=== PATIENT | male | born 1975 | race Caucasian/White ===

== ENCOUNTER 2017-05-06 20:19 | Observation (INO) ==
[2017-05-06 21:10] LABS: Bilirubin,Urine Negative (Negative); Blood,Urine Trace (Negative); Clarity,Urine Clear (Clear); Color,Urine Yellow (Yellow); Glucose,Urine (UA) Normal (Normal); Ketones,Urine Negative (Negative); Leukocyte Esterase,Urine Negative (Negative); Nitrite,Urine Negative (Negative); PH,Urine 5.5 pH Units (5.0-8.0); Protein,Urine >=300 mg/dL (Neg-Trace); Specific Gravity,Urine 1.019 (1.010-1.025); Urobilinogen,Urine Normal (Normal)
[2017-05-06 21:12] LABS: Bacteria,Urine None Seen per hpf (None-Few); Hyaline Casts,Urine Few per lpf (None-Few); RBC,Urine 0-3 per hpf (0-3); Squamous Epithelial Cell,Urine Many per lpf (None-Few)
[2017-05-06 21:19] LABS: Basophils # 0.1 K/mcL (0.0-0.2); Basophils % 1.7 %; Eosinophils % 0.4 %; Hematocrit 47.1 % (37.5-50.1); Hemoglobin 16.3 g/dL (12.9-16.9); Immature Platelets 3.4 % (1.1-6.1); Lymphocytes % 42.4 %; Mean Corpuscular HGB Conc 34.6 g/dL (31.6-35.5); Mean Corpuscular Hemoglobin 29.4 pg (28.0-33.3); Mean Corpuscular Volume 84.9 fL (83.0-100.0); Mean Platelet Volume 9.2 fL (9.4-12.4); Monocytes # 0.3 K/mcL (0.0-1.3); Monocytes % 5.2 %; Neutrophils # 2.4 K/mcL (1.6-8.9); Platelet Count 361 K/mcL (140-400); Red Blood Count 5.55 M/mcL (4.19-5.50); Red Cell Distribution Width 13.7 % (11.5-14.5); Segmented Neutrophils % 50.3 %
[2017-05-06 21:29] LABS: Amphetamine Screen,Urine Negative ng/mL (Cutoff=1000); Barbiturate Screen,Urine Negative ng/mL (Cutoff=200); Benzodiazepines Screen,Urine Negative ng/mL (Cutoff=200); Cannabinoid Screen,Urine Negative ng/mL (Cutoff = 50); Cocaine Screen,Urine Negative ng/mL (Cutoff= 300); Opiate Screen,Urine Negative ng/mL (Cutoff=300); Phencyclidine Screen,Urine Negative ng/mL (Cutoff=25)
[2017-05-06 21:32] LABS: Alanine Aminotransferase 70 Units/L (0-55); Albumin 4.1 g/dL (3.5-5.0); Albumin/Globulin Ratio 0.9 (1.1-2.2); Alkaline Phosphatase 64 Units/L (38-126); Aspartate Amino Transferase 51 Units/L (5-34); BUN/Creatinine Ratio 12 (6-26); Bilirubin,Direct 0.3 mg/dL (0.0-0.5); Bilirubin,Indirect 0.7 mg/dL (0.0-1.2); Blood Urea Nitrogen 10 mg/dL (8-26); Calcium 9.4 mg/dL (8.6-10.8); Carbon Dioxide 23 mEq/L (19-29); Chloride 106 mEq/L (98-109); Ethanol 273 mg/dL (0-10); Globulin 4.6 g/dL (2.4-3.5); Glucose 144 mg/dL (70-99); Osmolality,Calculated 292 (280-300); Potassium 4.1 mEq/L (3.5-4.5); Sodium 140 mEq/L (136-145); Total Protein 8.7 g/dL (6.0-8.3); eGFR For African Americans > 60 (> 60); eGFR For Non-African Americans > 60 (> 60)
[2017-05-06 21:33] LABS: Acetaminophen < 1.0 mcg/mL (10-30); Salicylate < 5.0 mg/dL (15-30)
[2017-05-06 21:52] LABS: Thyroid Stimulating Hormone 1.772 mcIU/mL (0.350-4.840)
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
[2017-05-06] MEDS ORDERED: 0.9 % Sodium Chloride 1,000 ML IVC ONE (22:04)
[2017-05-06] MEDS ORDERED: MVI, adult with vitamin K 10 ML, Folic Acid 1 MG, Thiamine (B-1) 100 MG in 0.9 % Sodi... IVC ONE (23:28)
[2017-05-06] MEDS ORDERED: *HR* LORazepam 2 MG/ML VIAL IVP ONE (23:28)
[2017-05-06] MEDS ORDERED: Thiamine (B-1) 100 MG in D5% in Water 50 ML IVPB ONE (23:28)
[2017-05-06] MEDS ORDERED: Folic Acid 1 MG in D5% in Water 50 ML IVPB ONE (23:28)
[2017-05-07 00:14] LABS: Magnesium 2.3 mg/dL (1.6-2.6)
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
[2017-05-07] MEDS ORDERED: *HR* LORazepam 2 MG/ML VIAL IVP PRN ×3 (02:27)
[2017-05-07] MEDS ORDERED: D5% in Water 1,000 ML IVC PRN (02:30)
[2017-05-07] MEDS ORDERED: Dextrose Gel 15 GM PO PRN ×2 (02:30)
[2017-05-07] MEDS ORDERED: *HR* Dextrose 50 % in Water (Syg) 50 ML SYRINGE IVP PRN (02:30)
[2017-05-07] MEDS ORDERED: methylPREDNISolone 125 MG/2 ML VIAL ONE (02:30)
[2017-05-07] MEDS ORDERED: methylPREDNISolone 125 MG/2 ML VIAL IVP ONE (02:31)
[2017-05-07] MEDS ORDERED: Ibuprofen 600 MG TABLET PO PRN (03:16)
[2017-05-07] MEDS ORDERED: Sennosides/Docusate Sodium TABLET PO PRN (03:21)
[2017-05-07] MEDS ORDERED: *HR* Heparin 5,000 UNIT/ML VIAL SQ SCH (06:00)
[2017-05-07] MEDS: Insulin DETEMIR 100 UNIT/ML X5UNITS SQ SCH (07:39)
[2017-05-07] MEDS: Folic Acid 1 MG TABLET PO SCH (07:47)
[2017-05-07] MEDS: Aspirin 81 MG TAB.CHEW PO SCH (07:47)
[2017-05-07] MEDS: Lisinopril-HCTZ 20-12.5mg TABLET PO SCH (07:47)
[2017-05-07] MEDS: Thiamine (B-1) 100 MG TABLET PO SCH (07:47)
[2017-05-07] MEDS: Vitamin B Complex/Vit C/Vit E 1 EACH TABLET PO SCH (07:47)
[2017-05-07] MEDS: 0.9 % Sodium Chloride 1,000 ML IVC SCH (07:48)
[2017-05-07] MEDS ORDERED: *HR* LORazepam 2 MG/ML VIAL IVP ONE (07:57)
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
[2017-05-07 08:15] LABS: INR 1.2; Prothrombin Time 12.6 Seconds (9.4-12.1)
[2017-05-07 08:30] LABS: Hemoglobin A1C 6.1 %
[2017-05-07] MEDS: Insulin LISPRO 300 UNITS/3 ML VIAL SQ SCH ×6 (08:54→17:01)
[2017-05-07 09:13] LABS: BUN/Creatinine Ratio 15 (6-26); Blood Urea Nitrogen 10 mg/dL (8-26); Calcium 8.6 mg/dL (8.6-10.8); Carbon Dioxide 15 mEq/L (19-29); Chloride 106 mEq/L (98-109); Glucose 154 mg/dL (70-99); Osmolality,Calculated 286 (280-300); Potassium 3.8 mEq/L (3.5-4.5); Sodium 137 mEq/L (136-145); eGFR For African Americans > 60 (> 60); eGFR For Non-African Americans > 60 (> 60)
[2017-05-07] MEDS: *HR* Enoxaparin 100 MG/ML SYRINGE SQ SCH ×2 (09:47→21:31)
--- NOTE | 2017-05-07 11:42 | Internal Med Progress Note ---
Date of Encounter: 05/07/17 Time of Encounter: 09:30 - Assessment and plan (1) Alcohol intoxication Current Visit: Yes Status: Acute Assessment and plan: Bloody EtOH level 273 at presentation, resolved. Patient normally drinks 12-16 beers a day, admits to previous hospitalization for alcohol withdrawal symptoms Currently receiving Vitamin B complex, Thiamine, Fluids CIWA Protocol active Librium QID scheduled with room to increase dose, PRN Ativan Continue to monitor Qualifiers: Complication of substance-induced condition: uncomplicated Qualified Code(s ): F10.920 - Alcohol use, unspecified with intoxication, uncomplicated (2) Atrial fibrillation Current Visit: Yes Status: Acute Assessment and plan: Atrial fibrillation with rapid ventricular response, unknown time of onset, likely secondary to EtOH abuse and EtOH cardiomyopathy Patient developed allergic reaction to Cardizem in the ER Metoprolol 50 mg twice a day, titrate up as necessary Echocardiogram pending Started Lovenox while in hospital however not a good candidate for long-term anticoagulation due to chronic alcohol use Cardiology is on board Qualifiers: Atrial fibrillation type: unspecified Qualified Code(s): I48.91 - Unspecified atrial fibrillation (3) Alcoholic cardiomyopathy Current Visit: Yes Status: Chronic Assessment and plan: Alcoholic cardiomyopathy, stable Patient will remain on cardiac monitoring (4) Allergic reaction caused by a drug Current Visit: Yes Status: Resolved Assessment and plan: Allergic reaction to Cardizem in the ER Discontinued Cardizem, resolved Qualifiers: Encounter type: initial encounter Qualified Code(s): T78.40XA - Allergy, unspecified, initial encounter (5) DM type 2 (diabetes mellitus, type 2) Current Visit: Yes Status: Acute Assessment and plan: Type 2 diabetes mellitus, well controlled. Hemoglobin A1c 6.1, blood glucose has remained under 154 Patient on ACHS + POC glucose monitoring SSI at mealtime Hypoglycemic protocol in place Qualifiers: Diabetes mellitus complication status: without complication Diabetes mellitus manager terminal insulin use: without assisted use Qualified Code(s): E11.9 - Type 2 diabetes mellitus without complications (6) Liver cirrhosis, alcoholic Current Visit: No Status: Chronic Assessment and plan: Liver cirrhosis, alcoholic suggested on CT Diffuse hepatic steatosis seen on CT, suggestive of liver cirrhosis Abdomen this distended however nontender, no fluid wave is palpated No stigmata of liver disease is noted on examination Qualifiers: Ascites presence: without ascites Qualified Code(s): K70.30 - Alcoholic cirrhosis of liver without ascites (7) DVT prophylaxis Current Visit: Yes Status: Acute Assessment and plan: Subcutaneous Lovenox every 12 - Subjective Interval history: The patient is resting in bed with minimal distress at time of examination. He says that he is not experiencing any headache, hallucinations, nausea or vomiting, but does admit to some tremor. He otherwise has no acute complaints is that he feels well enough to go home today. - Constitutional Vitals: Temp Pulse Resp BP Pulse Ox 97.4 F L 114 16 156/103 93 05/07/17 11:29 05/07/17 11:29 05/07/17 11:29 05/07/17 11:29 05/07/17 11:29 General appearance: Present: cooperative, mild distress, A&O X 3, obese - Head Head exam: Present: atraumatic, normocephalic - Eye Eye exam: Present: PERRL, conjuntiva pink, sclera anicteric. Absent: nystagmus , scleral icterus Pupils: Present: PERRL - Neck Neck exam general surgery: Present: supple, trachea midline. Absent: lymphadenopathy - Respiratory Respiratory exam: Present: CTAB. Absent: accessory muscle use, rales, respiratory distress, rhonchi, wheezes - Cardiovascular Cardiovascular exam: Present: irregular rhythm, +S1, +S2, tachycardia. Absent: diastolic murmur, gallop, RRR, rubs, systolic murmur Additional comments: Patient atrial fibrillation at time of exam - GI/Abdominal GI/Abdominal exam: Present: distended, normal bowel sounds, soft, no peritoneal signs. Absent: firm, guarding, hernia, tenderness Additional comments: Tympanic to percussion, no fluid wave - Extremities Exam Extremities exam: Present: warm, radial pulses palpable and symmetrical. Absent : calf tenderness, cyanotic, pedal edema - Neurological Exam Neurological exam: Present: CN II-XII intact, oriented X3, no focal deficits. Absent: pronater drift, facial droop, speech deficit Additional comments: Tremor present - Skin Skin exam: Present: dry, intact Internal Medicine: Result - Labs CBC & Chem 7: 05/06/17 21:13 05/07/17 07:26 Labs: BMP 05/07/17 07:26 Sodium 137 Potassium 3.8 Chloride 106 Carbon Dioxide 15 L BUN 10 Creatinine 0.67 L Glucose 154 H Calcium 8.6 Cardiac Enzymes 05/07/17 05/07/17 Range/Units 05:30 07:26 Troponin I 0.00 0.01 (0-0.03) ng/mL - ABG Interpretation ABG results: PT/INR, D-dimer PT 12.6 Seconds (9.4-12.1) H 05/07/17 07:26 Consult Discharge Plan - Plan [facility] Care Provider[facility] - 05/20/17 9:15 am (THIS IS WITH THE RED TEAM)
--- NOTE | 2017-05-07 13:25 | Cardiology Consult Note ---
Date of Encounter: 05/07/17 Time of Encounter: 13:23 Assessment and Plan (1) Atrial fibrillation with RVR Current Visit: Yes Status: Acute Atrial fibrillation with RVR. Unknown timing of onset. He is asymptomatic. Likely due to ETOH abuse. Developed allergic reaction to cardizem in the ER. Now on metoprolol 50 mg BID. B/p 150/100. There is room to increase as needed. TTE pending. TSH is normal. CHADS VASc=2 for HTN and DM type II. on asa. Not a good candidate for alf AC if he continues to drink ETOH. Discussed with patient who voiced understanding. On lovenox currently. Recommend sleep study in out-pt setting. Significant other reports loud snoring. We will follow with you. Discussion w patient/family: The assessment and plan as outlined above was discussed with the patient and/or family members who expressed understanding and agreement. All questions were answered. Thank you for involving us in the care of your patient. Please call with any questions. History of Present Illness Consult date: 05/07/17 Requesting physician: Raffi Amor Consult reason: atrial fibrillation with RVR Chief complaint: Increased alcohol intake. History of present illness: Mr. Chaudhary is a 41 year old male with a past medical history of HTN, DM type II , and depression who presented by the direction of [facility] when he reported an increase in ETOH intake. He presented to the ER and was found to be in atrial fibrillation with RVR with HR in the 130's. He was given 10 mg IV cardizem. He unfortunately developed hives and itching due to allergic reaction to cardizem. Cardiology consulted for further recommendation. Je denies chest pain or palpitations. Denies SOB. Denies dizziness or lightheadedness. Reports drinking 12-16 beers a day. Last alcoholic beverage was at 4:30 pm yesterday. He denies previous history of afib or previous cardiac work-up. Past Med Surg Social Fam HX - Past Medical History Medical history: cirrhosis, diabetes, GERD, hyperlipidemia, hypertension, other Psychiatric history: anxiety, depression, prior suicide attempt, previous psychiatric hospitalization - Past Surgical History Surgical History: appendectomy, orthopedic, other (right rotator cuff repair), other - Social History Smoking Status: Never smoker Smokeless Tobacco Status: No Alcohol use: heavy, recent Drug use: none - Family History Mother Living Status: Age at : 53 Cause of : stroke Hx Family Neurologic Disorders: Yes (CVA) Father Adopted: No Living Status: Age at : 48 Cause of : lung cancer Hx Family Respiratory Disorders: Yes Hx Family Cancer: Yes (Lung) Medications and Allergies Sildenafil Citrate [Viagra] 100 mg PO AD PRN 12/17/15 [History] metFORMIN [Glucophage] 500 mg PO BIDWM #28 tablet 12/23/15 [Rx] Lisinopril-HCTZ 20-12.5 [Prinzide 20-12.5] 1 each PO DAILY tablet 01/31/16 [Rx] Acamprosate Calcium 666 mg PO TID 05/07/17 [History] Acetaminophen [Tylenol] 650 mg PO TID PRN 05/07/17 [History] Baclofen [Lioresal] 10 mg PO TID PRN 05/07/17 [History] Folic Acid 2 mg PO DAILY 05/07/17 [History] Gabapentin [Neurontin] 300 mg PO TID 05/07/17 [History] Ibuprofen [Motrin] 600 mg PO Q6H PRN 05/07/17 [History] Ketoconazole 2% CRM [Nizoral Cream] 1 appl TP BID 05/07/17 [History] Melatonin [Melatin] 6 mg PO HS PRN 05/07/17 [History] Simvastatin [Zocor] 20 mg PO HS 05/07/17 [History] hydrOXYzine HCl [Hydroxyzine HCl] 50 mg PO TID 05/07/17 [History] 3 Allergy/AdvReac Type Severity Reaction Status Date / Time Gadolinium-Containing Allergy Mild Cough Verified 07/21/16 17:31 Contrast Medi diltiazem [From Cardizem] Allergy Hives Verified 05/07/17 06:36 nut - unspecified Allergy Hives Verified 02/11/16 15:43 All Systems Review: A 10-system review of systems was performed and is negative for pertinent findings except as documented above in the HPI. Physical Examination Vital Signs, Last 4 Hours Temp Pulse Resp BP Pulse Ox 05/07/17 11:29 97.4 F L 114 16 156/103 93 05/07/17 10:37 98.4 F 131 20 142/108 93 General: Conversant, No Apparent Distress, Other (Tremors noted) HEENT: Atraumatic, Normocephaly, Mucus Membranes Moist, Other Neck: No JVD, Normal carotid pulses Cardiac: Other (Irregular ) Lungs: Normal Breath Sounds, No Wheeze, Rales, Rhonchi Neuro: Alert and responsive, No focal deficits noted Abdomen: Soft, Non-Tender Skin: No rashes noted on visualized skin, Other (skin is belia) Musculoskeletal: No Chest Wall Tenderness Extremities: No Clubbing, No Cyanosis, No Edema, Normal Pulses Results 05/06/17 21:13 05/07/17 07:26 Lab Results 05/07/17 05/07/17 05/07/17 05:30 07:26 07:26 INR 1.2 Sodium Potassium Chloride Carbon Dioxide BUN Creatinine Glucose Calcium Troponin I 0.00 0.01 05/07/17 07:26 INR Sodium 137 Potassium 3.8 Chloride 106 Carbon Dioxide 15 L BUN 10 Creatinine 0.67 L Glucose 154 H Calcium 8.6 Troponin I - EKG Interpretation EKG results cardiology: personally reviewed Consult Discharge Plan - Plan [facility]errals: [facility]Primary Care Provider[facility] - 05/20/17 9:15 am (THIS IS WITH THE RED TEAM)
[2017-05-07] MEDS ORDERED: Insulin LISPRO 300 UNITS/3 ML VIAL SQ SCH (21:00)
[2017-05-07] MEDS: Metoprolol 100 MG TABLET PO SCH (21:31)
[2017-05-08] MEDS: Insulin DETEMIR 100 UNIT/ML X5UNITS SQ SCH (00:18)
[2017-05-08] MEDS: 0.9 % Sodium Chloride 1,000 ML IVC SCH (00:18)
[2017-05-08 04:08] LABS: Basophils % 0.2 %; Hematocrit 46.5 % (37.5-50.1); Immature Granulocytes % 0.3 % (0-4); Lymphocytes # 1.7 K/mcL (0.6-4.6); Lymphocytes % 15.5 %; Mean Corpuscular HGB Conc 34.4 g/dL (31.6-35.5); Mean Corpuscular Hemoglobin 29.6 pg (28.0-33.3); Mean Corpuscular Volume 86.1 fL (83.0-100.0); Mean Platelet Volume 9.8 fL (9.4-12.4); Monocytes # 0.8 K/mcL (0.0-1.3); Monocytes % 7.6 %; Neutrophils # 8.2 K/mcL (1.6-8.9); Platelet Count 269 K/mcL (140-400); Red Cell Distribution Width 13.2 % (11.5-14.5); Segmented Neutrophils % 76.4 %
[2017-05-08 04:14] LABS: BUN/Creatinine Ratio 12 (6-26); Blood Urea Nitrogen 8 mg/dL (8-26); Calcium 8.9 mg/dL (8.6-10.8); Carbon Dioxide 26 mEq/L (19-29); Chloride 106 mEq/L (98-109); Glucose 133 mg/dL (70-99); Osmolality,Calculated 286 (280-300); Potassium 3.5 mEq/L (3.5-4.5); Sodium 138 mEq/L (136-145); eGFR For African Americans > 60 (> 60); eGFR For Non-African Americans > 60 (> 60)
[2017-05-08] MEDS: Folic Acid 1 MG TABLET PO SCH (08:28)
[2017-05-08] MEDS: Aspirin 81 MG TAB.CHEW PO SCH (08:28)
[2017-05-08] MEDS: *HR* Enoxaparin 100 MG/ML SYRINGE SQ SCH (08:28)
[2017-05-08] MEDS: Metoprolol 100 MG TABLET PO SCH (08:28)
[2017-05-08] MEDS: Lisinopril-HCTZ 20-12.5mg TABLET PO SCH (08:28)
[2017-05-08] MEDS: Thiamine (B-1) 100 MG TABLET PO SCH (08:28)
[2017-05-08] MEDS: Vitamin B Complex/Vit C/Vit E 1 EACH TABLET PO SCH (08:28)
[2017-05-08] MEDS: Insulin LISPRO 300 UNITS/3 ML VIAL SQ SCH ×4 (08:29→14:14)
--- NOTE | 2017-05-08 08:34 | Electrocardiograph Report ---
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
--- NOTE | 2017-05-08 08:34 | Electrocardiograph Report ---
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
[2017-05-08] MEDS ORDERED: APIXABAN 5 MG TABLET PO SCH (09:30)
[2017-05-08 11:08] VITALS: BP 120/90
--- NOTE | 2017-05-08 11:42 | Cardiology Progress Note ---
Date of Encounter: 05/08/17 Time of Encounter: 11:39 Assessment and Plan (1) Atrial fibrillation Current Visit: Yes Status: Acute Presented with atrial fibrillation with RVR. Likely secondary to ETOH abuse. Unknown timing of onset. Now rate controlled on metoprolol. Avg HR 85 bpm. TTE:Patient was in atrial fibrillation with RVR throughout the examination. Normal LV systolic function, LVEF 55%. Mild concentric left ventricular hypertrophy. Indeterminate diastolic function due to atrial fibrillation. Normal right ventricular size and function. No significant valvular dysfunction. Unable to estimate RVSP due to lack of TR jet. ETOH cessation discussed. Pt reports multiple attempts to stop drinking. Discussed AC. CHADS VASc=2 for HTN and DM. Ideally he should be on AC. Continue asa 81 mg daily. Consider correction anticoagulation if he is compliant follow up and will stop drinking. Cardiology will sign off. Out-pt f/u will be scheduled in 1-2 weeks. Call with questions. Qualifiers: Atrial fibrillation type: unspecified Qualified Code(s): I48.91 - Unspecified atrial fibrillation Discussion w patient/family: The assessment and plan as outlined above was discussed with the patient and/or family members who expressed understanding and agreement. All questions were answered. Thank you for involving us in the care of your patient. Please call with any questions. Subjective Principal diagnosis: atrial fibrillation Interval history: No new complaints. Now rate controlled on lopressor. Mild tremors noted. Reports he is feeling fine. He stopped drinking previously without withdrawl symptoms. Objective Vital Signs, Last 4 Hours Temp Pulse Resp BP Pulse Ox 05/08/17 11:01 98.8 F 81 18 120/90 93 05/08/17 08:12 98.7 F 94 18 124/95 91 General: Conversant, No Apparent Distress HEENT: Atraumatic, Normocephaly, Mucus Membranes Moist Neck: No JVD, Normal carotid pulses Cardiac: Other (Irregularly irregular) Lungs: Normal Breath Sounds, No Wheeze, Rales, Rhonchi Neuro: Alert and responsive, No focal deficits noted Abdomen: Soft, Non-Tender Skin: No rashes noted on visualized skin Musculoskeletal: No Chest Wall Tenderness Extremities: No Clubbing, No Cyanosis, No Edema, Normal Pulses Results 05/08/17 03:50 05/08/17 03:50 Lab Results 05/07/17 05/08/17 05/08/17 14:32 03:50 03:50 WBC 10.7 D Hgb 16.0 Hct 46.5 Plt Count 269 Sodium 138 Potassium 3.5 Chloride 106 Carbon Dioxide 26 BUN 8 Creatinine 0.66 L Glucose 133 H Calcium 8.9 Troponin I 0.00 - Imaging and Cardiology Echo: report reviewed - EKG Interpretation EKG results cardiology: personally reviewed Consult Discharge Plan - Plan [facility] Provider[facility] - 05/20/17 9:15 am (THIS IS WITH THE RED TEAM)
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
--- NOTE | 2017-05-08 18:57 | Electrocardiograph Report ---
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
== END 2017-05-08 16:30 | disposition home or self-care (01) ==
LOC: 3BNU 20:19 → EMEROO 20:19 → SUATTDRO 23:58 → 3BNU 05-07 01:32 → 2NNU 05-07 08:44
PROVIDERS: ADMIT Pediatrics; ATTEND Internal Medicine

== ENCOUNTER 2020-06-26 22:39 | Inpatient (IN) ==
[2020-06-26 23:11] LABS: Basophils # 0.1 K/mcL (0.0-0.2); Basophils % 1.2 %; Eosinophils % 0.3 %; Hematocrit 47.1 % (37.5-50.1); Hemoglobin 15.9 g/dL (12.9-16.9); Immature Granulocytes % 0.2 % (0-4); Lymphocytes # 2.9 K/mcL (0.6-4.6); Lymphocytes % 50.6 %; Mean Corpuscular HGB Conc 33.8 g/dL (31.6-35.5); Mean Corpuscular Hemoglobin 33.1 pg (28.0-33.3); Mean Corpuscular Volume 97.9 fL (83.0-100.0); Mean Platelet Volume 9.8 fL (9.4-12.4); Monocytes # 0.4 K/mcL (0.0-1.3); Monocytes % 7.3 %; Neutrophils # 2.3 K/mcL (1.6-8.9); Platelet Count 288 K/mcL (140-400); Red Blood Count 4.81 M/mcL (4.19-5.50); Red Cell Distribution Width 12.9 % (11.5-14.5); Segmented Neutrophils % 40.4 %; White Blood Count 5.8 K/mcL (4.3-11.1)
[2020-06-26 23:18] LABS: INR 1.3; Prothrombin Time 14.9 Seconds (9.4-12.1)
[2020-06-26 23:36] LABS: BUN/Creatinine Ratio 8 (6-26); Blood Urea Nitrogen 4 mg/dL (6-20); Calcium 8.5 mg/dL (8.6-10.3); Carbon Dioxide 24 mEq/L (23-29); Chloride 105 mEq/L (98-107); Glucose 125 mg/dL (70-105); Osmolality,Calculated 288 (280-300); Potassium 3.3 mEq/L (3.5-5.1); Sodium 140 mEq/L (136-145); Troponin I < 0.03 ng/mL (< 0.04); eGFR For African Americans > 60 (> 60); eGFR For Non-African Americans > 60 (> 60)
[2020-06-26] MEDS ORDERED: methylPREDNISolone 125 MG/2 ML VIAL IVP ONE (23:39)
[2020-06-26] MEDS ORDERED: Ipratropium/Albuterol Neb 3 ML IH ONE (23:40)
[2020-06-27] MEDS ORDERED: cefTRIAXone 1,000 MG in 0.9 % Sodium Chloride Mini Bag 100 ML IVPB ONE (00:12)
[2020-06-27] MEDS ORDERED: Azithromycin 500 MG in 0.9 % Sodium Chloride 250 ML IVPB ONE (00:12)
[2020-06-27 00:59] LABS: Adenovirus Not Detected (Not Detect); Bordetella Pertussis Not Detected (Not Detect); Chlamydophila pneumoniae Not Detected (Not Detect); Coronavirus 229E Not Detected (Not Detect); Coronavirus HKU1 Not Detected (Not Detect); Coronavirus NL63 Not Detected (Not Detect); Coronavirus OC43 Not Detected (Not Detect); Human Metapneumovirus Not Detected (Not Detect); Human Rhinovirus/Enterovirus Not Detected (Not Detect); Influenza A Subtype 2009 H1 Not Detected (Not Detect); Influenza B Not Detected (Not Detect); Mycoplasma pneumoniae Not Detected (Not Detect); Parainfluenza Virus 1 Not Detected (Not Detect); Parainfluenza Virus 2 Not Detected (Not Detect); Parainfluenza Virus 3 Not Detected (Not Detect); Parainfluenza Virus 4 Not Detected (Not Detect); Respiratory Syncytial Virus Not Detected (Not Detect); SARS-CoV-2 Not Detected (Not Detect)
[2020-06-27] MEDS ORDERED: *HR* Metoprolol 5 MG/5 ML VIAL IVP ONE (01:38)
[2020-06-27] MEDS ORDERED: Furosemide 40 MG/4 ML VIAL IVP ONE (01:45)
[2020-06-27] MEDS ORDERED: *HR* Heparin 5,000 UNIT/ML VIAL IVP PRN ×2 (01:51)
[2020-06-27] MEDS ORDERED: *HR* Heparin 5,000 UNIT/ML VIAL IVP ONE (01:51)
[2020-06-27] MEDS: Heparin 25,000UNIT/250ML 1/2NS 25,000 UNIT/250 ML IV.SOLN IVC SCH ×2 (02:14→22:46)
[2020-06-27 02:19] LABS: Hematocrit 44.7 % (37.5-50.1); Hemoglobin 15.1 g/dL (12.9-16.9); Mean Corpuscular HGB Conc 33.8 g/dL (31.6-35.5); Mean Corpuscular Hemoglobin 33.3 pg (28.0-33.3); Mean Corpuscular Volume 98.5 fL (83.0-100.0); Mean Platelet Volume 9.9 fL (9.4-12.4); Platelet Count 239 K/mcL (140-400); Red Blood Count 4.54 M/mcL (4.19-5.50); Red Cell Distribution Width 13.1 % (11.5-14.5)
[2020-06-27 02:20] LABS: White Blood Count 2.7 K/mcL (4.3-11.1)
[2020-06-27] MEDS ORDERED: Naloxone 0.4 MG/ML INJ IVP PRN (02:23)
[2020-06-27] MEDS ORDERED: Acetaminophen 325 MG TABLET PO PRN (02:23)
[2020-06-27] MEDS ORDERED: Ondansetron ODT 4 MG TAB.RAPDIS SL PRN (02:23)
[2020-06-27 02:25] LABS: Heparin anti-factor XA UFH < 0.04 IU/mL (0.30-0.70); INR 1.3; Prothrombin Time 15.2 Seconds (9.4-12.1)
[2020-06-27] MEDS ORDERED: Perflutren Lipid Microsphere 1.3 ML in 0.9 % Sodium Chloride 8.7 ML IVP PRN (02:27)
[2020-06-27] MEDS ORDERED: Dextrose Gel 15 GM/37.5 ML TUBE PO PRN ×2 (02:29)
[2020-06-27] MEDS ORDERED: D5% in Water 1,000 ML IVC PRN (02:29)
[2020-06-27] MEDS ORDERED: *HR* Dextrose 50 % in Water (Vial) 50 ML VIAL IVP PRN (02:29)
[2020-06-27] MEDS: Insulin LISPRO 300 UNITS/3 ML VIAL SQ SCH ×4 (04:31→15:41)
[2020-06-27 05:42] LABS: Alanine Aminotransferase 63 Units/L (7-52); Albumin 3.6 g/dL (3.5-5.7); Alkaline Phosphatase 95 Units/L (34-104); Aspartate Amino Transferase 128 Units/L (13-39); BUN/Creatinine Ratio 11 (6-26); Bilirubin,Direct 0.6 mg/dL (0.0-0.2); Bilirubin,Indirect 0.7 mg/dL (0.0-1.0); Bilirubin,Total 1.3 mg/dL (0.3-1.0); Blood Urea Nitrogen 5 mg/dL (6-20); Calcium 8.1 mg/dL (8.6-10.3); Carbon Dioxide 19 mEq/L (23-29); Chloride 105 mEq/L (98-107); Globulin 3.7 g/dL (2.4-3.5); Glucose 155 mg/dL (70-105); Magnesium 1.2 mg/dL (1.6-2.6); Osmolality,Calculated 292 (280-300); Potassium 3.6 mEq/L (3.5-5.1); Sodium 141 mEq/L (136-145); Total Protein 7.3 g/dL (6.4-8.9); Troponin I 0.03 ng/mL (< 0.04); eGFR For African Americans > 60 (> 60); eGFR For Non-African Americans > 60 (> 60)
[2020-06-27 05:51] LABS: Thyroid Stimulating Hormone 1.038 mcIU/mL (0.340-5.600)
[2020-06-27 09:11] LABS: Estimated Average Glucose 114 mg/dl
[2020-06-27] MEDS: Venlafaxine XR (24 HR) 75 MG CAP.ER.24H PO SCH (09:17)
[2020-06-27] MEDS: Aspirin 81 MG TAB.CHEW PO SCH (09:18)
[2020-06-27] MEDS: Baclofen 10 MG TABLET PO SCH ×3 (09:18→19:53)
[2020-06-27] MEDS: Gabapentin 300 MG CAPSULE PO SCH ×3 (09:18→19:53)
[2020-06-27] MEDS ORDERED: *HR* LORazepam 2 MG/ML VIAL IVP PRN (11:53)
[2020-06-27] MEDS: *HR* LORazepam 2 MG/ML VIAL IVP PRN ×2 (12:07→17:25)
[2020-06-27] MEDS: *HR* Metoprolol 5 MG/5 ML VIAL IVP PRN ×3 (14:37→20:51)
[2020-06-27] MEDS: Magnesium Oxide 400 MG TABLET PO SCH (19:53)
[2020-06-27] MEDS: Furosemide 20 MG/2 ML VIAL IVP SCH (19:53)
[2020-06-27] MEDS ORDERED: DilTIAZem 50 MG/50 ML IV.SOLN IVC SCH (21:15)
[2020-06-27] MEDS ORDERED: Amiodarone Premix 150 MG/100 ML BAG IVPB ONE (22:00)
[2020-06-27] MEDS ORDERED: Amiodarone Premix 360 MG/200 ML BAG IVC ONE (22:30)
[2020-06-27] MEDS ORDERED: 0.9 % Sodium Chloride 250 ML ONE (23:27)
[2020-06-28] MEDS ORDERED: 0.9 % Sodium Chloride 1,000 ML ONE ×3 (01:09→22:28)
[2020-06-28] MEDS: *HR* LORazepam 2 MG/ML VIAL IVP PRN ×4 (01:43→19:41)
[2020-06-28 02:05] LABS: BUN/Creatinine Ratio 16 (6-26); Blood Urea Nitrogen 16 mg/dL (6-20); Calcium 8.6 mg/dL (8.6-10.3); Carbon Dioxide 21 mEq/L (23-29); Chloride 105 mEq/L (98-107); Glucose 157 mg/dL (70-105); Osmolality,Calculated 296 (280-300); Potassium 4.5 mEq/L (3.5-5.1); Sodium 141 mEq/L (136-145); eGFR For African Americans > 60 (> 60); eGFR For Non-African Americans > 60 (> 60)
[2020-06-28 04:09] LABS: Basophils % 0.1 %; Hematocrit 53.2 % (37.5-50.1); Hemoglobin 17.1 g/dL (12.9-16.9); Immature Granulocytes % 0.5 % (0-4); Lymphocytes # 0.9 K/mcL (0.6-4.6); Lymphocytes % 6.1 %; Mean Corpuscular HGB Conc 32.1 g/dL (31.6-35.5); Mean Corpuscular Hemoglobin 33.7 pg (28.0-33.3); Mean Corpuscular Volume 104.7 fL (83.0-100.0); Mean Platelet Volume 10.9 fL (9.4-12.4); Monocytes # 0.8 K/mcL (0.0-1.3); Monocytes % 5.6 %; Neutrophils # 12.9 K/mcL (1.6-8.9); Platelet Count 274 K/mcL (140-400); Red Blood Count 5.08 M/mcL (4.19-5.50); Red Cell Distribution Width 13.3 % (11.5-14.5); Segmented Neutrophils % 87.7 %; White Blood Count 14.7 K/mcL (4.3-11.1)
[2020-06-28] MEDS: Furosemide 20 MG/2 ML VIAL IVP SCH ×2 (08:35→16:33)
[2020-06-28] MEDS: Gabapentin 300 MG CAPSULE PO SCH ×3 (08:35→20:50)
[2020-06-28] MEDS: Venlafaxine XR (24 HR) 75 MG CAP.ER.24H PO SCH (08:35)
[2020-06-28] MEDS: Baclofen 10 MG TABLET PO SCH ×3 (08:35→20:50)
[2020-06-28] MEDS: Magnesium Oxide 400 MG TABLET PO SCH ×2 (08:35→20:50)
[2020-06-28] MEDS: Aspirin 81 MG TAB.CHEW PO SCH (08:35)
[2020-06-28] MEDS: Insulin LISPRO 300 UNITS/3 ML VIAL SQ SCH ×3 (08:36→16:25)
[2020-06-28] MEDS: Amiodarone Premix 360 MG/200 ML BAG IVC SCH (09:38)
[2020-06-28] MEDS ORDERED: Furosemide 20 MG/2 ML VIAL IVP ONE (11:50)
[2020-06-28 14:14] LABS: Bacteria,Urine Few per hpf (None-Few); Bilirubin,Urine Small (Negative); Blood,Urine Trace (Negative); Clarity,Urine Ex.Turbid (Clear); Color,Urine Orange (Yellow); Glucose,Urine (UA) Normal (Normal); Hyaline Casts,Urine Many per lpf (None Seen); Ketones,Urine Negative (Negative); Leukocyte Esterase,Urine Negative (Negative); Mucus,Urine Moderate per lpf (None-Few); Nitrite,Urine Negative (Negative); PH,Urine 5.5 pH Units (5.0-8.0); Protein,Urine 70 mg/dL (Neg-Trace); RBC,Urine 30-50 per hpf (0-3); Specific Gravity,Urine 1.018 (1.010-1.025); Sperm,Urine Present (None Seen); Urobilinogen,Urine Normal (Normal); WBC,Urine 30-50 per hpf (0-3)
[2020-06-28] MEDS ORDERED: *HR* Amiodarone 150 MG/3 ML VIAL IVPB ONE (17:19)
[2020-06-28] MEDS ORDERED: *HR* Atropine Sulfate 1 MG/10 ML SYRINGE IV ONE (17:19)
[2020-06-28] MEDS ORDERED: *HR* EPINEPHrine 1 MG/10 ML SYRINGE IVP ONE (17:19)
[2020-06-28] MEDS ORDERED: *HR* Adenosine 6 MG/2 ML SYRINGE IVP ONE (17:19)
[2020-06-28] MEDS: Heparin 25,000UNIT/250ML 1/2NS 25,000 UNIT/250 ML IV.SOLN IVC SCH (19:48)
[2020-06-28 20:35] LABS: ABG Base Excess 1 mEq/L (-2 to 3); ABG HCO3 23 mEq/L (21-27); ABG Oxygen Saturation 93 % (95-98); ABG PCO2 33 mmHg (35-45); ABG PH 7.46 pH Units (7.32-7.45); ABG PO2 61 mmHg (85-104); ABG TCO2 24 mEq/L (20-26); Blood Gas Modality avaps; Blood Gas Pressure Support 10 cm H2O; Blood Gas VT 420 cc
[2020-06-28 22:14] LABS: ABG Base Excess -7 mEq/L (-2 to 3); ABG HCO3 17 mEq/L (21-27); ABG Oxygen Saturation 90 % (95-98); ABG PCO2 30 mmHg (35-45); ABG PH 7.36 pH Units (7.32-7.45); ABG PO2 61 mmHg (85-104); ABG TCO2 18 mEq/L (20-26)
[2020-06-28 23:00] LABS: ABG Base Excess -7 mEq/L (-2 to 3); ABG HCO3 19 mEq/L (21-27); ABG Oxygen Saturation 96 % (95-98); ABG PCO2 37 mmHg (35-45); ABG PH 7.32 pH Units (7.32-7.45); ABG PO2 89 mmHg (85-104); ABG TCO2 20 mEq/L (20-26); Blood Gas Modality AF; Blood Gas VT 500 cc
[2020-06-28 23:11] LABS: Hematocrit 50.8 % (37.5-50.1); Mean Corpuscular HGB Conc 31.5 g/dL (31.6-35.5); Mean Corpuscular Hemoglobin 33.1 pg (28.0-33.3); Mean Corpuscular Volume 105.2 fL (83.0-100.0); Mean Platelet Volume 10.9 fL (9.4-12.4); Platelet Count 256 K/mcL (140-400); Red Blood Count 4.83 M/mcL (4.19-5.50); Red Cell Distribution Width 13.5 % (11.5-14.5); White Blood Count 13.3 K/mcL (4.3-11.1)
[2020-06-28 23:17] LABS: VBG Ionized Calcium 1.02 mmol/L (1.15-1.35)
[2020-06-28 23:32] LABS: Alanine Aminotransferase 93 Units/L (7-52); Albumin 3.3 g/dL (3.5-5.7); Albumin/Globulin Ratio 0.9 (1.1-2.2); Alkaline Phosphatase 79 Units/L (34-104); Aspartate Amino Transferase 237 Units/L (13-39); BUN/Creatinine Ratio 25 (6-26); Bilirubin,Total 2.9 mg/dL (0.3-1.0); Blood Urea Nitrogen 37 mg/dL (6-20); Calcium 8.1 mg/dL (8.6-10.3); Carbon Dioxide 15 mEq/L (23-29); Chloride 107 mEq/L (98-107); Globulin 3.5 g/dL (2.4-3.5); Glucose 186 mg/dL (70-105); Magnesium 2.1 mg/dL (1.6-2.6); Osmolality,Calculated 306 (280-300); Phosphorous 7.8 mg/dL (2.7-4.5); Sodium 141 mEq/L (136-145); Total Protein 6.8 g/dL (6.4-8.9); eGFR For African Americans > 60 (> 60); eGFR For Non-African Americans 51 (> 60)
[2020-06-29] MEDS ORDERED: Artificial Tears SOLN 15 ML BOTTLE BOTH EYES PRN (00:19)
[2020-06-29] MEDS: Midazolam HCl 50 MG/100 ML IV.SOLN IVC SCH ×2 (00:30→11:39)
[2020-06-29] MEDS: FentaNYL (PF) 1,000 MCG/100 ML IV.SOLN IVC SCH ×3 (00:30→18:00)
[2020-06-29] MEDS: Artificial Tears SOLN 15 ML BOTTLE BOTH EYES SCH ×5 (01:40→19:46)
[2020-06-29] MEDS: Pantoprazole 40 MG VIAL IVP SCH ×2 (01:41→09:47)
[2020-06-29] MEDS: Calcium Gluconate 1gm/50mL 1 GM/50 ML BAG IVPB SCH ×2 (01:41→02:48)
[2020-06-29] MEDS: Norepinephrine 4 MG/254 ML IV.SOLN IVC SCH ×3 (01:41→09:07)
[2020-06-29] MEDS: Chlorhexidine Rinse 15 ML MOUTHWASH MM SCH ×3 (01:41→19:54)
[2020-06-29 01:47] LABS: Troponin I 0.06 ng/mL (< 0.04)
[2020-06-29] MEDS: Amiodarone Premix 360 MG/200 ML BAG IVC SCH ×3 (03:49→19:45)
[2020-06-29 04:52] LABS: ABG Base Excess 1 mEq/L (-2 to 3); ABG HCO3 24 mEq/L (21-27); ABG Oxygen Saturation 98 % (95-98); ABG PCO2 34 mmHg (35-45); ABG PH 7.46 pH Units (7.32-7.45); ABG PO2 105 mmHg (85-104); ABG TCO2 25 mEq/L (20-26); Blood Gas VT 500 cc
[2020-06-29 05:18] LABS: Basophils % 0.1 %; Hematocrit 47.4 % (37.5-50.1); Hemoglobin 15.3 g/dL (12.9-16.9); Immature Granulocytes % 0.5 % (0-4); Lymphocytes # 1.5 K/mcL (0.6-4.6); Lymphocytes % 10.1 %; Mean Corpuscular HGB Conc 32.3 g/dL (31.6-35.5); Mean Corpuscular Hemoglobin 33.1 pg (28.0-33.3); Mean Corpuscular Volume 102.6 fL (83.0-100.0); Mean Platelet Volume 10.8 fL (9.4-12.4); Monocytes # 0.5 K/mcL (0.0-1.3); Monocytes % 3.5 %; Neutrophils # 12.8 K/mcL (1.6-8.9); Nucleated Red Blood Cells 0.1 /100 WBC (0); Platelet Count 164 K/mcL (140-400); Red Blood Count 4.62 M/mcL (4.19-5.50); Red Cell Distribution Width 13.5 % (11.5-14.5); Segmented Neutrophils % 85.8 %; White Blood Count 14.9 K/mcL (4.3-11.1)
[2020-06-29 05:25] LABS: VBG Ionized Calcium 1.12 mmol/L (1.15-1.35)
[2020-06-29 05:35] LABS: BUN/Creatinine Ratio 32 (6-26); Blood Urea Nitrogen 39 mg/dL (6-20); Calcium 8.6 mg/dL (8.6-10.3); Carbon Dioxide 22 mEq/L (23-29); Chloride 109 mEq/L (98-107); Glucose 145 mg/dL (70-105); Magnesium 1.8 mg/dL (1.6-2.6); Osmolality,Calculated 304 (280-300); Phosphorous 2.8 mg/dL (2.7-4.5); Potassium 3.4 mEq/L (3.5-5.1); Sodium 141 mEq/L (136-145); eGFR For African Americans > 60 (> 60); eGFR For Non-African Americans > 60 (> 60)
[2020-06-29 05:36] LABS: Albumin 3.2 g/dL (3.5-5.7); Bilirubin,Direct 1.3 mg/dL (0.0-0.2); Bilirubin,Indirect 1.7 mg/dL (0.0-1.0); Globulin 3.3 g/dL (2.4-3.5); Total Protein 6.5 g/dL (6.4-8.9)
[2020-06-29] MEDS ORDERED: Acetaminophen IV 1,000 MG/100 ML INFUS..BTL IVPB ONE (06:00)
[2020-06-29] MEDS: Vancomycin 1,250 MG/262.5 ML IV.SOLN IVPB SCH ×2 (06:43→18:04)
[2020-06-29] MEDS ORDERED: Potassium Phosphate 44 MEQ in 0.9 % Sodium Chloride 250 ML IVPB PRN (06:49)
[2020-06-29] MEDS ORDERED: Calcium Gluconate 1gm/50mL 1 GM/50 ML BAG IVPB PRN (06:49)
[2020-06-29] MEDS: Furosemide 20 MG/2 ML VIAL IVP SCH ×2 (08:36→16:35)
[2020-06-29] MEDS: Insulin LISPRO 300 UNITS/3 ML VIAL SQ SCH ×3 (08:36→18:01)
[2020-06-29] MEDS: Aspirin 81 MG TAB.CHEW PO SCH (09:46)
[2020-06-29] MEDS: Venlafaxine XR (24 HR) 75 MG CAP.ER.24H PO SCH (09:46)
[2020-06-29] MEDS: Magnesium Oxide 400 MG TABLET PO SCH ×2 (09:47→19:54)
[2020-06-29] MEDS: Piperacillin/Tazobactam 3.375 GM in 0.9 % Sodium Chloride Mini Bag 100 ML IVPB SCH ×2 (09:47→16:24)
[2020-06-29] MEDS: Baclofen 10 MG TABLET PO SCH ×2 (09:47→13:22)
[2020-06-29] MEDS: Gabapentin 300 MG CAPSULE PO SCH ×2 (09:48→13:22)
[2020-06-29] MEDS: Potassium Chloride 40 MEQ/200 ML BAG IVPB PRN ×2 (15:25→16:33)
[2020-06-29] MEDS: Heparin 25,000UNIT/250ML 1/2NS 25,000 UNIT/250 ML IV.SOLN IVC SCH (18:00)
[2020-06-29 20:30] LABS: Magnesium 1.9 mg/dL (1.6-2.6); Potassium 3.8 mEq/L (3.5-5.1)
[2020-06-29 20:54] LABS: % Iron Saturation 4 % (20-55); Ferritin 907 ng/mL (20-250); Iron 11 mcg/dL (65-175); Transferrin 204 mg/dL (203-362)
[2020-06-30] MEDS: Artificial Tears SOLN 15 ML BOTTLE BOTH EYES SCH ×7 (00:05→22:41)
[2020-06-30] MEDS: Insulin LISPRO 300 UNITS/3 ML VIAL SQ SCH ×4 (00:05→17:07)
[2020-06-30] MEDS: Piperacillin/Tazobactam 3.375 GM in 0.9 % Sodium Chloride Mini Bag 100 ML IVPB SCH ×4 (00:07→22:41)
[2020-06-30] MEDS: Midazolam HCl 50 MG/100 ML IV.SOLN IVC SCH ×2 (00:35→11:56)
[2020-06-30] MEDS: FentaNYL (PF) 1,000 MCG/100 ML IV.SOLN IVC SCH ×2 (03:20→11:55)
[2020-06-30 04:47] LABS: ABG Base Excess -1 mEq/L (-2 to 3); ABG HCO3 24 mEq/L (21-27); ABG Oxygen Saturation 96 % (95-98); ABG PCO2 39 mmHg (35-45); ABG PH 7.39 pH Units (7.32-7.45); ABG PO2 84 mmHg (85-104); ABG TCO2 25 mEq/L (20-26); Blood Gas Modality AF; Blood Gas VT 450 cc
[2020-06-30 04:56] LABS: Hematocrit 47.8 % (37.5-50.1); Mean Corpuscular Volume 105.3 fL (83.0-100.0); Red Blood Count 4.54 M/mcL (4.19-5.50)
[2020-06-30 04:58] LABS: Basophils % 0.4 %; Hemoglobin 15.1 g/dL (12.9-16.9); Immature Granulocytes % 0.5 % (0-4); Immature Platelets 7.5 % (1.1-6.1); Lymphocytes # 0.7 K/mcL (0.6-4.6); Lymphocytes % 6.7 %; Mean Corpuscular HGB Conc 31.6 g/dL (31.6-35.5); Mean Corpuscular Hemoglobin 33.3 pg (28.0-33.3); Mean Platelet Volume 11.6 fL (9.4-12.4); Monocytes # 0.4 K/mcL (0.0-1.3); Monocytes % 3.8 %; Neutrophils # 9.4 K/mcL (1.6-8.9); Platelet Count 133 K/mcL (140-400); Red Cell Distribution Width 13.5 % (11.5-14.5); Segmented Neutrophils % 88.6 %; White Blood Count 10.6 K/mcL (4.3-11.1)
[2020-06-30 05:06] LABS: BUN/Creatinine Ratio 35 (6-26); Blood Urea Nitrogen 42 mg/dL (6-20); Calcium 8.1 mg/dL (8.6-10.3); Carbon Dioxide 22 mEq/L (23-29); Chloride 110 mEq/L (98-107); Glucose 104 mg/dL (70-105); Magnesium 2.1 mg/dL (1.6-2.6); Osmolality,Calculated 303 (280-300); Potassium 3.8 mEq/L (3.5-5.1); Sodium 141 mEq/L (136-145); eGFR For African Americans > 60 (> 60); eGFR For Non-African Americans > 60 (> 60)
[2020-06-30] MEDS: Vancomycin 1,250 MG/262.5 ML IV.SOLN IVPB SCH ×2 (06:38→17:05)
[2020-06-30] MEDS: Furosemide 20 MG/2 ML VIAL IVP SCH ×2 (07:25→15:13)
[2020-06-30] MEDS: Chlorhexidine Rinse 15 ML MOUTHWASH MM SCH ×2 (07:25→21:36)
[2020-06-30] MEDS: Aspirin 81 MG TAB.CHEW PO SCH (07:26)
[2020-06-30] MEDS: Magnesium Oxide 400 MG TABLET PO SCH ×2 (07:26→21:36)
[2020-06-30] MEDS: Pantoprazole 40 MG VIAL IVP SCH (07:26)
[2020-06-30] MEDS: Amiodarone Premix 360 MG/200 ML BAG IVC SCH (07:56)
[2020-06-30] MEDS: *HR* Amiodarone 200 MG TABLET PO SCH ×2 (11:42→21:36)
[2020-06-30] MEDS: Dexmedetomidine HCl 400 MCG/100 ML MLS IVC SCH ×2 (11:43→22:50)
[2020-06-30] MEDS: Calcium Gluconate 1gm/50mL 1 GM/50 ML BAG IVPB SCH ×2 (13:47→14:43)
[2020-06-30] MEDS: Heparin 25,000UNIT/250ML 1/2NS 25,000 UNIT/250 ML IV.SOLN IVC SCH (15:14)
[2020-06-30 20:52] LABS: Adenovirus Not Detected (Not Detect); Bordetella Pertussis Not Detected (Not Detect); Chlamydophila pneumoniae Not Detected (Not Detect); Coronavirus 229E Not Detected (Not Detect); Coronavirus HKU1 Not Detected (Not Detect); Coronavirus NL63 Not Detected (Not Detect); Coronavirus OC43 Not Detected (Not Detect); Human Metapneumovirus Not Detected (Not Detect); Human Rhinovirus/Enterovirus Not Detected (Not Detect); Influenza A Subtype 2009 H1 Not Detected (Not Detect); Influenza B Not Detected (Not Detect); Mycoplasma pneumoniae Not Detected (Not Detect); Parainfluenza Virus 1 Not Detected (Not Detect); Parainfluenza Virus 2 Not Detected (Not Detect); Parainfluenza Virus 3 Not Detected (Not Detect); Parainfluenza Virus 4 Not Detected (Not Detect); Respiratory Syncytial Virus Not Detected (Not Detect)
[2020-06-30 20:53] LABS: SARS-CoV-2 DETECTED (Not Detect)
[2020-06-30] MEDS: Doxycycline 100 MG in 0.9 % Sodium Chloride Mini Bag 100 ML IVPB SCH (21:38)
[2020-06-30 22:12] LABS: Alanine Aminotransferase 130 Units/L (7-52); Albumin 3.1 g/dL (3.5-5.7); Alkaline Phosphatase 61 Units/L (34-104); Aspartate Amino Transferase 219 Units/L (13-39); Bilirubin,Direct 4.3 mg/dL (0.0-0.2); Bilirubin,Indirect 2.7 mg/dL (0.0-1.0); Total Protein 6.1 g/dL (6.4-8.9)
[2020-06-30] MEDS: Dexamethasone 4 MG/ML VIAL IVP SCH (22:39)
[2020-07-01] MEDS: Insulin LISPRO 300 UNITS/3 ML VIAL SQ SCH ×5 (01:54→21:42)
[2020-07-01] MEDS: FentaNYL (PF) 1,000 MCG/100 ML IV.SOLN IVC SCH ×2 (02:06→21:30)
[2020-07-01 04:34] LABS: ABG Base Excess 0 mEq/L (-2 to 3); ABG HCO3 25 mEq/L (21-27); ABG Oxygen Saturation 94 % (95-98); ABG PCO2 40 mmHg (35-45); ABG PH 7.41 pH Units (7.32-7.45); ABG PO2 72 mmHg (85-104); ABG TCO2 26 mEq/L (20-26); Blood Gas VT 450 cc
[2020-07-01] MEDS: Artificial Tears SOLN 15 ML BOTTLE BOTH EYES SCH ×5 (04:49→21:01)
[2020-07-01 05:22] LABS: VBG Ionized Calcium 1.11 mmol/L (1.15-1.35)
[2020-07-01 05:25] LABS: Heparin anti-factor XA UFH < 0.04 IU/mL (0.30-0.70)
[2020-07-01 05:25] LABS: Red Cell Distribution Width 13.1 % (11.5-14.5)
[2020-07-01 05:27] LABS: Hematocrit 46.3 % (37.5-50.1); Hemoglobin 14.8 g/dL (12.9-16.9); Immature Platelets 11.4 % (1.1-6.1); Mean Corpuscular Hemoglobin 33.3 pg (28.0-33.3); Mean Corpuscular Volume 104.3 fL (83.0-100.0); Mean Platelet Volume 11.9 fL (9.4-12.4); Red Blood Count 4.44 M/mcL (4.19-5.50)
[2020-07-01] MEDS: Doxycycline 100 MG in 0.9 % Sodium Chloride Mini Bag 100 ML IVPB SCH ×2 (05:29→17:59)
[2020-07-01 05:39] LABS: Alanine Aminotransferase 278 Units/L (7-52); Albumin 2.9 g/dL (3.5-5.7); Albumin/Globulin Ratio 0.9 (1.1-2.2); Alkaline Phosphatase 54 Units/L (34-104); Aspartate Amino Transferase 569 Units/L (13-39); BUN/Creatinine Ratio 49 (6-26); Blood Urea Nitrogen 42 mg/dL (6-20); Calcium 8.2 mg/dL (8.6-10.3); Carbon Dioxide 23 mEq/L (23-29); Chloride 110 mEq/L (98-107); Globulin 3.1 g/dL (2.4-3.5); Glucose 206 mg/dL (70-105); Magnesium 1.8 mg/dL (1.6-2.6); Osmolality,Calculated 310 (280-300); Phosphorous 3.1 mg/dL (2.7-4.5); Potassium 4.1 mEq/L (3.5-5.1); Sodium 142 mEq/L (136-145); eGFR For African Americans > 60 (> 60); eGFR For Non-African Americans > 60 (> 60)
[2020-07-01] MEDS: Vancomycin 1,500 MG/265 ML IV.SOLN IVPB SCH ×2 (05:45→17:11)
[2020-07-01] MEDS: Dexmedetomidine HCl 400 MCG/100 ML MLS IVC SCH ×2 (05:56→17:07)
[2020-07-01] MEDS: Piperacillin/Tazobactam 3.375 GM in 0.9 % Sodium Chloride Mini Bag 100 ML IVPB SCH ×2 (07:50→15:33)
[2020-07-01 07:52] LABS: Acetaminophen < 10 mcg/mL (10-20)
[2020-07-01] MEDS: Dexamethasone 4 MG/ML VIAL IVP SCH (08:00)
[2020-07-01] MEDS: Furosemide 20 MG/2 ML VIAL IVP SCH ×2 (08:00→17:10)
[2020-07-01] MEDS: Pantoprazole 40 MG VIAL IVP SCH (08:00)
[2020-07-01] MEDS: Magnesium Oxide 400 MG TABLET PO SCH ×2 (08:02→21:00)
[2020-07-01] MEDS: Chlorhexidine Rinse 15 ML MOUTHWASH MM SCH ×2 (08:02→21:00)
[2020-07-01] MEDS: *HR* Amiodarone 200 MG TABLET PO SCH ×2 (08:02→21:01)
[2020-07-01] MEDS: Aspirin 81 MG TAB.CHEW PO SCH (08:02)
[2020-07-01 08:10] LABS: INR 1.6; Prothrombin Time 18.1 Seconds (9.4-12.1)
[2020-07-01] MEDS ORDERED: ACETYLCYSTEINE IVC ONE (10:00)
[2020-07-01] MEDS ORDERED: D5 IVC ONE (10:00)
[2020-07-01] MEDS ORDERED: WATER IVC ONE (10:00)
[2020-07-01] MEDS ORDERED: Acetylcysteine 3,800 MG in D5% in Water 500 ML IVC ONE (11:00)
[2020-07-01] MEDS ORDERED: *HR* Heparin 5,000 UNIT/ML VIAL SQ SCH (14:00)
[2020-07-01] MEDS ORDERED: Acetylcysteine 7,700 MG in D5% in Water 1,000 ML IVC ONE (16:00)
[2020-07-01] MEDS ORDERED: *HR* Heparin 5,000 UNIT/ML VIAL IVP PRN ×2 (16:50)
[2020-07-01] MEDS ORDERED: Heparin 25,000UNIT/250ML 1/2NS 25,000 UNIT/250 ML IV.SOLN IVC SCH (17:00)
[2020-07-01] MEDS: Norepinephrine 4 MG/254 ML IV.SOLN IVC SCH (18:28)
[2020-07-01 18:38] LABS: Mean Corpuscular HGB Conc 31.9 g/dL (31.6-35.5); Red Cell Distribution Width 13.1 % (11.5-14.5)
[2020-07-01 18:39] LABS: Hematocrit 46.4 % (37.5-50.1); Hemoglobin 14.8 g/dL (12.9-16.9); Immature Platelets 12.8 % (1.1-6.1); Mean Corpuscular Hemoglobin 33.3 pg (28.0-33.3); Mean Corpuscular Volume 104.5 fL (83.0-100.0); Mean Platelet Volume 12.3 fL (9.4-12.4); Red Blood Count 4.44 M/mcL (4.19-5.50); White Blood Count 4.1 K/mcL (4.3-11.1)
[2020-07-01 18:42] LABS: Heparin anti-factor XA UFH < 0.04 IU/mL (0.30-0.70); INR 1.7; Prothrombin Time 19.7 Seconds (9.4-12.1)
[2020-07-01] MEDS: *HR* Heparin 5,000 UNIT/ML VIAL SQ SCH (21:00)
[2020-07-02] MEDS: Piperacillin/Tazobactam 3.375 GM in 0.9 % Sodium Chloride Mini Bag 100 ML IVPB SCH ×3 (00:10→15:42)
[2020-07-02] MEDS: Artificial Tears SOLN 15 ML BOTTLE BOTH EYES SCH ×5 (00:11→15:50)
[2020-07-02] MEDS: Insulin LISPRO 300 UNITS/3 ML VIAL SQ SCH ×5 (00:40→15:50)
[2020-07-02] MEDS: Dexmedetomidine HCl 400 MCG/100 ML MLS IVC SCH ×2 (02:35→12:17)
[2020-07-02 04:29] LABS: ABG Base Excess 2 mEq/L (-2 to 3); ABG HCO3 27 mEq/L (21-27); ABG Oxygen Saturation 96 % (95-98); ABG PCO2 41 mmHg (35-45); ABG PH 7.42 pH Units (7.32-7.45); ABG PO2 80 mmHg (85-104); ABG TCO2 28 mEq/L (20-26); Blood Gas VT 450 cc
[2020-07-02 05:38] LABS: ABG Ionized Calcium 1.12 mmol/L (1.15-1.35)
[2020-07-02 05:38] LABS: Hematocrit 46.2 % (37.5-50.1); Hemoglobin 14.8 g/dL (12.9-16.9); Mean Corpuscular Hemoglobin 33.1 pg (28.0-33.3); Mean Corpuscular Volume 103.4 fL (83.0-100.0); Platelet Count 106 K/mcL (140-400); Red Blood Count 4.47 M/mcL (4.19-5.50); Red Cell Distribution Width 13.2 % (11.5-14.5)
[2020-07-02 05:40] LABS: White Blood Count 6.3 K/mcL (4.3-11.1)
[2020-07-02 05:53] LABS: Alanine Aminotransferase 458 Units/L (7-52); Albumin 2.9 g/dL (3.5-5.7); Alkaline Phosphatase 86 Units/L (34-104); Aspartate Amino Transferase 780 Units/L (13-39); BUN/Creatinine Ratio 39 (6-26); Bilirubin,Total 4.1 mg/dL (0.3-1.0); Blood Urea Nitrogen 32 mg/dL (6-20); Calcium 8.1 mg/dL (8.6-10.3); Carbon Dioxide 25 mEq/L (23-29); Chloride 110 mEq/L (98-107); Globulin 2.9 g/dL (2.4-3.5); Glucose 201 mg/dL (70-105); Magnesium 1.6 mg/dL (1.6-2.6); Osmolality,Calculated 309 (280-300); Phosphorous 3.1 mg/dL (2.7-4.5); Potassium 4.1 mEq/L (3.5-5.1); Sodium 143 mEq/L (136-145); Total Protein 5.8 g/dL (6.4-8.9); eGFR For African Americans > 60 (> 60); eGFR For Non-African Americans > 60 (> 60)
[2020-07-02] MEDS: Doxycycline 100 MG in 0.9 % Sodium Chloride Mini Bag 100 ML IVPB SCH (06:37)
[2020-07-02] MEDS: *HR* Heparin 5,000 UNIT/ML VIAL SQ SCH ×2 (06:38→14:28)
[2020-07-02] MEDS: Vancomycin 1,500 MG/265 ML IV.SOLN IVPB SCH (06:41)
[2020-07-02] MEDS: Chlorhexidine Rinse 15 ML MOUTHWASH MM SCH (09:22)
[2020-07-02] MEDS: *HR* Amiodarone 200 MG TABLET PO SCH (09:23)
[2020-07-02] MEDS: Dexamethasone 4 MG/ML VIAL IVP SCH (09:23)
[2020-07-02] MEDS: Pantoprazole 40 MG VIAL IVP SCH (09:23)
[2020-07-02] MEDS: Magnesium Oxide 400 MG TABLET PO SCH (09:24)
[2020-07-02] MEDS: Aspirin 81 MG TAB.CHEW PO SCH (09:24)
[2020-07-02] MEDS: FentaNYL (PF) 1,000 MCG/100 ML IV.SOLN IVC SCH (11:23)
[2020-07-02] MEDS ORDERED: Lactulose Oral Soln 20 GM/30 ML UDC PO SCH (11:45)
[2020-07-02] MEDS ORDERED: Furosemide 20 MG/2 ML VIAL IVP ONE (14:39)
[2020-07-02 17:13] VITALS: BP 107/80
== END 2020-07-02 17:20 | disposition short-term general hospital (02) | DRG 194 ==
LOC: 2ANU 22:39 → EMEROOARM 22:39 → SUATTDRO 06-27 02:09 → 2ANU 06-27 02:41 → 2NNU 06-27 23:42 → ICNU 06-28 21:41 → 2NENU 07-01 00:34
PROVIDERS: ADMIT Internal Medicine; ATTEND Internal Medicine